=== PATIENT | female | born 1950 | race Caucasian/White ===

== ENCOUNTER 2017-01-11 09:07 | Day surgery (SDC) | payer OTHER ==
[~2017-01-11] VITALS: Ht 167.6 cm; Wt 75.9 kg
[~2017-01-11 09:07] MED LIST: ALEN10TA18 PO; PANT40TA3 PO; SITA25TA3 PO
[2017-01-11 09:47] VITALS: Ht 167.6 cm; Wt 75.9 kg
[2017-01-11] MEDS ORDERED: METFORMIN (09:53)
[2017-01-11] MEDS ORDERED: PRAVASTATIN (09:53)
[2017-01-11] MEDS ORDERED: GLIPIZIDE (09:53)
[2017-01-11] MEDS ORDERED: ASPIRIN (09:53)
[2017-01-11] MEDS ORDERED: TRADJENTA (09:53)
[2017-01-11 10:10] VITALS: BP 144/75; PULSE 80; RESP 15
[2017-01-11] MEDS ORDERED: MIDAZOLAM 1 MG/ML 2 ML INJ ONE (11:03)
[2017-01-11] MEDS ORDERED: FENTAnyl 50 MCG/ML VIAL ONE (11:03)
[2017-01-11 11:23] VITALS: BP 110/68; PULSE 77; RESP 18
--- NOTE | 2017-01-11 13:00 | GILP ---
DATE OF PROCEDURE: 01/11/2017 PROCEDURE PERFORMED: Colonoscopy and biopsy. PREOP DIAGNOSES: 1. Screening colonoscopy. 2. Change in bowel habits. 3. Episodes of diarrhea. 4. Lower abdominal pain. POSTOP DIAGNOSES: 1. Colonoscopy all the way to the cecum. 2. Diverticulosis of the colon. 3. 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 4. Random biopsies were taken to rule out microscopic colitis. 5. Internal hemorrhoids. SURGEON: Blake Moreland MD INDICATION: Ms Brina Castro is a 66-year-old female patient who was scheduled for screening colonoscopy. She also had lower abdominal pain and episodes of diarrhea. The procedure and possible complications were well explained to the patient. She understood and consented to the procedure. DESCRIPTION OF PROCEDURE: Under influence of fentanyl and Versed, the colonoscope was carefully introduced in the rectum. Under direct vision it was advanced all the way to the cecum. Findings: The patient had angiodysplastic lesions in the right colon. She had diverticulosis of the colon. She was noted to have hemorrhoids. Random biopsies were taken to rule out microscopic colitis. She tolerated the procedure very well. There is no complications from the procedure. At the end of procedure she was awake with stable vital signs and she was discharged home in the care of her family. IMPRESSION: Please see postop diagnoses. PLAN: 1. Bentyl 10 mg p.o. t.i.d. p.r.n. for pain and diarrhea. 2. Next screening colonoscopy in 10 years. Dictated By: MD JEWELS Alas/lupillo/zen /Document#: [id number]
== END 2017-01-11 12:11 | disposition home or self-care (01) ==
LOC: GIL 09:07
PROVIDERS: ATTEND Internal Medicine Gastroenterology
DX: Z12.11 Encounter for screening for malignant neoplasm of colon (principal); K57.90 Diverticulosis of intestine, part unspecified, without perforation or abscess without bleeding; K64.8 Other hemorrhoids; E11.9 Type 2 diabetes mellitus without complications
CPT/HCPCS: 45380; 82962; 88305; J2250; J3010

== ENCOUNTER 2017-07-28 05:41 | Day surgery (SDC) | END 2017-07-28 11:18 | disposition home or self-care (01) ==